=== PATIENT | female | born 1960 | race Caucasian/White ===

== ENCOUNTER 2017-12-13 15:34 | Emergency (ER) | payer OTHER ==
[2017-12-13] MEDS: DEXAMETHASONE 0.1% 5 ML OPH RIGHT EYE (17:04)
[2017-12-13] MEDS: predniSONE 20 MG TAB PO (17:04)
[2017-12-13] MEDS: SULFACETAMIDE 10% 15 ML OPH RIGHT EYE (17:05)
== END 2017-12-13 17:51 | disposition home or self-care (01) ==
LOC: FTE 17:51
DX: H15.001 Unspecified scleritis, right eye (principal); Z87.891 Personal history of nicotine dependence
CPT/HCPCS: 99283; J7512